=== PATIENT | female | born 1960 | race Caucasian/White ===

== ENCOUNTER → 2021-02-21 | Outpatient (CLI) | payer MEDICARE | LOC: RAD 13:41 | DX: M54.50 Low back pain, unspecified (principal); M79.605 Pain in left leg; M79.604 Pain in right leg | CPT/HCPCS: 72110; 93970 ==

== ENCOUNTER 2022-01-06 05:42 | Observation (INO) | payer MEDICARE ==
[~2022-01-06] VITALS: Ht 170.2 cm; Wt 110.7 kg
[~2022-01-06 05:42] MED LIST: ASPIRIN81 MG PO; ATORVASTATIN CA10 MG PO; CARVEDILOL12.5 MG PO; CLOPIDOGREL75 MG PO; FUROSEMIDE40 MG PO; HYDRALAZINE HCL25 MG PO; KEVZARA200 MG/1.2 SC; LOSARTAN POTASS25 MG PO; NEURONTIN100 MG PO; PREDNISONE5 MG PO; TRAMADOL HCL100 MG PO
[2022-01-06] MEDS ORDERED: DEXAMETHASONE SOD PHOS 10 MG/1 ML VIAL ONE (06:32)
[2022-01-06] MEDS ORDERED: CELECOXIB 200 MG CAP ONE (06:32)
[2022-01-06] MEDS ORDERED: GABAPENTIN 300 MG CAP ONE (06:33)
[2022-01-06] MEDS ORDERED: SODIUM CHLORIDE 0.9% 500ML 500 ML ONE (06:57)
[2022-01-06] MEDS ORDERED: Vancomycin IV 500 MG ONE ×2 (06:58→09:20)
[2022-01-06] MEDS ORDERED: TRANEXAMIC ACID 20 ML ONE (06:58)
[2022-01-06] MEDS ORDERED: ROPIVACAINE 246.25 MG, EPINEPHRINE HCL 1:1000 1ML 0.5 MG, CLONIDINE HCL 0.08 MG, KETORO... INJ ONE ×5 (08:00)
[2022-01-06] MEDS ORDERED: DOCUSATE SODIUM 100 MG CAP PO PRN (10:15)
[2022-01-06] MEDS ORDERED: ONDANSETRON HCL INJ 2MG/ML 2ML 2 MG/ML VIAL IV PRN (10:15)
[2022-01-06] MEDS ORDERED: DIPHENHYDRAMINE HCL INJ 50 MG/ML VIAL IV PRN (10:15)
[2022-01-06] MEDS ORDERED: FENTANYL CITRATE/PF 100MCG/2 ML INJ ONE ×2 (10:49→11:34)
[2022-01-06] MEDS ORDERED: MIDAZOLAM HCL 2 MG/2 ML VIAL ONE (11:34)
[2022-01-06] MEDS ORDERED: HYDROMORPHONE 1MG/1ML INJ ONE (11:39)
[2022-01-06] MEDS: SODIUM CHLORIDE 0.9% 1000ML 1,000 ML IV SCH ×2 (12:33→20:03)
[2022-01-06] MEDS: HYDROCODONE/APAP 7.5MG-325MG 1 EA TAB PO PRN ×3 (12:33→17:35)
[2022-01-06 12:37] VITALS: BP_SYST 147; BP_SYST 162; BP_DIAS 81
[2022-01-06 12:39] VITALS: BP 147/81
[2022-01-06] MEDS ORDERED: HYDROCODON-ACE1 EA12 PO (12:39)
[2022-01-06 12:45] VITALS: BP 162/81
[2022-01-06 12:57] VITALS: BP 162/81
[2022-01-06] MEDS ORDERED: ACETAMINOPHEN 1000 MG/100 ML IV PRN (16:00)
[2022-01-06 16:40] VITALS: BP 164/71
[2022-01-06] MEDS: ASPIRIN 325 MG TAB PO SCH (17:35)
[2022-01-06] MEDS: CELECOXIB 100 MG CAP PO SCH (17:36)
[2022-01-06 20:00] VITALS: BP 192/75
[2022-01-07] VITALS: BP 177/66
[2022-01-07 04:00] VITALS: BP 209/89
[2022-01-07] MEDS: HYDROCODONE/APAP 5MG-325MG TAB PO PRN ×3 (04:35→15:07)
[2022-01-07 04:44] VITALS: BP 198/92
[2022-01-07 06:02] LABS: HEMATOCRIT 36.9 % (34.2-44.1); HEMOGLOBIN 11.2 g/dL (12.0-16.0)
[2022-01-07] MEDS ORDERED: CARVEDILOL 12.5 MG TAB PO SCH (08:00)
[2022-01-07 08:47] VITALS: BP 214/87
[2022-01-07] MEDS ORDERED: HYDRALAZINE HCL 25 MG TAB PO SCH (09:00)
[2022-01-07] MEDS ORDERED: LOSARTAN POTASSIUM 100 MG TAB PO SCH (09:00)
[2022-01-07] MEDS ORDERED: LABETALOL HCL 5 MG/ML 20ML VIAL IV PRN (09:00)
[2022-01-07 09:15] LABS: BASOPHILS % 0.1 % (0.0-1.0); HEMATOCRIT 36.6 % (34.2-44.1); LYMPHOCYTES # (AUTO) 1.6 (1.0-3.2); MEAN CORPUSCULAR HEMOGLOBIN 28.9 pg (28-32); MEAN CORPUSCULAR HGB CONC 30.1 g/dL (31-35); MEAN CORPUSCULAR VOLUME 96.1 fL (81-99); MONOCYTES # (AUTO) 1.1 (0.2-0.8); MONOCYTES % 9.1 % (4.4-11.3); NEUTROPHILS # (AUTO) 8.9 (2.1-6.9); NEUTROPHILS % 76.4 % (38.7-80.0); PLATELET COUNT 247 x10e3/uL (140-360); RED BLOOD COUNT 3.81 x10e6/uL (3.6-5.1); RED CELL DISTRIBUTION WIDTH 14.5 % (11.7-14.4)
[2022-01-07 09:34] LABS: ALBUMIN 2.6 g/dL (3.5-5.0); ALBUMIN/GLOBULIN RATIO 0.7 (0.8-2.0); ANION GAP 11.9 mmol/L (8-16); CALCIUM 8.1 mg/dL (8.4-10.2); CREATININE, SERUM 0.69 mg/dL (0.57-1.11); POTASSIUM 3.9 mmol/L (3.5-5.1)
[2022-01-07] MEDS: CELECOXIB 100 MG CAP PO SCH (09:41)
[2022-01-07] MEDS: ASPIRIN 325 MG TAB PO SCH (09:41)
[2022-01-07 12:07] VITALS: BP 165/76
[2022-01-07] MEDS ORDERED: ONDANSETRON HCL 4 MG ORAL DISINTEGRATING TAB PO PRN (12:30)
[2022-01-07] MEDS ORDERED: HYDRALAZINE HCL 20 MG/ML VIAL IV ONE (14:15)
== END 2022-01-07 16:00 | disposition home health service (06) ==
LOC: OR 05:42 → PACU V 10:02 → MED/SURG2 11:59
PROVIDERS: ADMIT Specialist; ATTEND Specialist
DX: M17.12 Unilateral primary osteoarthritis, left knee (principal); M05.862 Other rheumatoid arthritis with rheumatoid factor of left knee; M05.861 Other rheumatoid arthritis with rheumatoid factor of right knee; E66.9 Obesity, unspecified; Z68.38 Body mass index [BMI] 38.0-38.9, adult; I10 Essential (primary) hypertension; E78.5 Hyperlipidemia, unspecified; G89.4 Chronic pain syndrome; G62.9 Polyneuropathy, unspecified; Z01.812 Encounter for preprocedural laboratory examination; Z20.822 Contact with and (suspected) exposure to COVID-19
CPT/HCPCS: 0223U; 27447; 36415 ×2; 73560; 80053; 83735; 85014; 85018; 85025; 86850; 86900; 86920; 94799 ×2; 97110; 97116 ×2; 97162; 97530 ×2; C1713; G0378 ×2; J0131; J0171; J0360; J0690 ×2; J1100; J1885; J2250; J2795; J3010; J3370; J3490; J7030; J7040; J1170

== ENCOUNTER 2022-03-27 | Outpatient (RCR) | payer MEDICARE ==
[~2022-03-27] MED LIST changes: +HYDROCODON-ACE1 EA12 PO
== END 2022-04-21 23:59 | disposition home or self-care (01) ==
LOC: PT
PROVIDERS: ATTEND Physician Assistant
DX: Z47.1 Aftercare following joint replacement surgery (principal); Z96.652 Presence of left artificial knee joint; M62.81 Muscle weakness (generalized); M25.562 Pain in left knee; M25.662 Stiffness of left knee, not elsewhere classified; R26.2 Difficulty in walking, not elsewhere classified

== ENCOUNTER 2022-03-31 14:49 | Outpatient (RCR) | payer MEDICARE | END 2022-04-21 | LOC: PT 14:49 | PROVIDERS: ATTEND Physician Assistant | DX: Z47.1 Aftercare following joint replacement surgery (principal); Z96.652 Presence of left artificial knee joint ==

== ENCOUNTER 2022-04-23 07:37 | Outpatient (RCR) | payer MEDICARE | END 2022-05-19 | LOC: PT 07:37 | PROVIDERS: ATTEND Physician Assistant | DX: Z47.1 Aftercare following joint replacement surgery (principal); Z96.652 Presence of left artificial knee joint ==

== ENCOUNTER → 2022-06-19 | Outpatient (CLI) | payer MEDICARE | LOC: RAD 06-18 11:15 | PROVIDERS: ATTEND Family Medicine Adult Medicine | DX: R10.11 Right upper quadrant pain (principal) | CPT/HCPCS: 76705 ==

== ENCOUNTER 2022-07-21 15:17 | Emergency (ER) | payer MEDICARE ==
[~2022-07-21] VITALS: Ht 170.2 cm; Wt 116.2 kg
[2022-07-21] MEDS ORDERED: TRAMADOL HCL 50 MG TAB PO ONE (16:00)
[2022-07-21] MEDS ORDERED: CLEOCIN HCL300 MG PO (16:06)
[2022-07-21] MEDS ORDERED: AMOXICILLIN/CLAVULANATE K 875 MG TAB ONE (16:14)
[2022-07-21] MEDS ORDERED: HYDRALAZINE HCL 25 MG TAB PO ONE (16:15)
[2022-07-21] MEDS ORDERED: AMOXICILLIN/CLAVULANATE K 875 MG TAB PO ONE (16:30)
== END 2022-07-21 16:39 | disposition home or self-care (01) ==
LOC: FSED 15:20
DX: L03.312 Cellulitis of back [any part except buttock and flank] (principal); L72.8 Other follicular cysts of the skin and subcutaneous tissue; M06.9 Rheumatoid arthritis, unspecified; I10 Essential (primary) hypertension; E78.5 Hyperlipidemia, unspecified; I25.10 Atherosclerotic heart disease of native coronary artery without angina pectoris; I25.2 Old myocardial infarction; Z95.5 Presence of coronary angioplasty implant and graft; Z96.652 Presence of left artificial knee joint
CPT/HCPCS: 99283

== ENCOUNTER → 2022-09-03 | Day surgery (SDC) | payer MEDICARE ==
[2022-08-31 10:56] LABS: BASOPHILS % 0.7 % (0.0-1.0); EOSINOPHILS # (AUTO) 0.1 (0.0-0.4); EOSINOPHILS % 0.9 % (0.0-6.0); HEMATOCRIT 42.4 % (34.2-44.1); HEMOGLOBIN 12.7 g/dL (12.0-16.0); LYMPHOCYTES # (AUTO) 1.6 (1.0-3.2); LYMPHOCYTES % 27.7 % (18.0-39.1); MEAN CORPUSCULAR HEMOGLOBIN 26.9 pg (28-32); MEAN CORPUSCULAR VOLUME 89.8 fL (81-99); MONOCYTES # (AUTO) 0.2 (0.2-0.8); MONOCYTES % 3.2 % (4.4-11.3); NEUTROPHILS # (AUTO) 3.8 (2.1-6.9); NEUTROPHILS % 67.3 % (38.7-80.0); PLATELET COUNT 276 x10e3/uL (140-360); RED BLOOD COUNT 4.72 x10e6/uL (3.6-5.1); RED CELL DISTRIBUTION WIDTH 15.9 % (11.7-14.4)
[2022-08-31 11:20] LABS: ALBUMIN 2.9 g/dL (3.5-5.0); ALBUMIN/GLOBULIN RATIO 0.6 (0.8-2.0); ANION GAP 13.2 mmol/L (8-16); CALCIUM 9.2 mg/dL (8.4-10.2); CREATININE, SERUM 0.7 mg/dL (0.57-1.11); POTASSIUM 4.2 mmol/L (3.5-5.1)
[~2022-09-03] MED LIST changes: +BUPIVACAINE 0.25% 30ML SDV ONE; +CLEOCIN HCL300 MG PO; +FENTANYL CITRATE/PF 100MCG/2 ML INJ ONE; +LACTATED RINGER'S 1,000 ML ONE; +LIDOCAINE HCL 1% LOCAL INJ 20 ML VIAL ONE; +LIDOCAINE HCL 2% LOCAL INJ 5 ML SDV VIAL INJ ONE; +LIDOCAINE HCL/EPINEPHRINE/PF 10 ML VIAL ONE; +MIDAZOLAM HCL 2 MG/2 ML VIAL ONE; +ONDANSETRON HCL INJ 2MG/ML 2ML 2 MG/ML VIAL ONE; +POVIDONE IODINE 0.05% 0.05 % ML PO ONE; +PROPOFOL IV EMULSION 10 MG/ML 20 ML VIAL ONE; +VITAMIN D250 MCG PO
[2022-09-03 10:19] VITALS: TEMP 97.5
[2022-09-03 11:00] VITALS: BP 127/70; PULSE 57; RESP 18; O2SAT 98
== END | disposition home or self-care (01) ==
LOC: OR 06:49
PROVIDERS: ATTEND Surgery
DX: L72.0 Epidermal cyst (principal); I11.0 Hypertensive heart disease with heart failure; I50.9 Heart failure, unspecified; I25.10 Atherosclerotic heart disease of native coronary artery without angina pectoris; E66.01 Morbid (severe) obesity due to excess calories; E78.5 Hyperlipidemia, unspecified; M06.9 Rheumatoid arthritis, unspecified; Z01.810 Encounter for preprocedural cardiovascular examination; Z01.812 Encounter for preprocedural laboratory examination; Z01.818 Encounter for other preprocedural examination; Z79.02 Long term (current) use of antithrombotics/antiplatelets; Z79.82 Long term (current) use of aspirin; Z79.899 Other long term (current) drug therapy; Z87.891 Personal history of nicotine dependence; Z95.5 Presence of coronary angioplasty implant and graft
CPT/HCPCS: 21931; 36415; 71046; 80053; 85025; 88304; 93005; J2001 ×2; J2250; J2405; J2704; J3010; J7121

== ENCOUNTER → 2024-10-23 | Outpatient (REF) | payer MEDICARE, OTHER ==
[~2024-10-23] MED LIST changes: -BUPIVACAINE 0.25% 30ML SDV ONE; -FENTANYL CITRATE/PF 100MCG/2 ML INJ ONE; -LACTATED RINGER'S 1,000 ML ONE; -LIDOCAINE HCL 1% LOCAL INJ 20 ML VIAL ONE; -LIDOCAINE HCL 2% LOCAL INJ 5 ML SDV VIAL INJ ONE; -LIDOCAINE HCL/EPINEPHRINE/PF 10 ML VIAL ONE; -MIDAZOLAM HCL 2 MG/2 ML VIAL ONE; -ONDANSETRON HCL INJ 2MG/ML 2ML 2 MG/ML VIAL ONE; -POVIDONE IODINE 0.05% 0.05 % ML PO ONE; -PROPOFOL IV EMULSION 10 MG/ML 20 ML VIAL ONE
== END ==
LOC: US 10:24
PROVIDERS: ATTEND Surgery
DX: R10.11 Right upper quadrant pain (principal); K82.8 Other specified diseases of gallbladder
CPT/HCPCS: 76705

== ENCOUNTER 2025-01-12 04:15 | Emergency (ER) | payer MEDICARE, OTHER ==
[~2025-01-12] VITALS: Ht 170.2 cm; Wt 116.1 kg
[2025-01-12 04:23] VITALS: PULSE 80; RESP 20; TEMP 99.4; O2SAT 95
[2025-01-12] MEDS ORDERED: DOXYCYCLINE HY100 MG PO (04:55)
== END 2025-01-12 05:32 | disposition home or self-care (01) ==
LOC: ER 04:26
DX: Z48.01 Encounter for change or removal of surgical wound dressing (principal)
CPT/HCPCS: 99284